=== PATIENT | female | born 1955 | race Caucasian/White ===

== ENCOUNTER 2018-12-21 10:38 | Emergency (ER) | payer OTHER ==
[~2018-12-21] VITALS: Ht 152.4 cm; Wt 76.7 kg
[2018-12-21 10:56] VITALS: Ht 152.4 cm; Wt 76.7 kg
[2018-12-21 13:17] VITALS: BP 123/72
== END 2018-12-21 13:18 | disposition home or self-care (01) ==
LOC: ED 10:38
DX: R07.81 Pleurodynia (principal); W01.0XXA Fall on same level from slipping, tripping and stumbling without subsequent striking against object, initial encounter; Y93.89 Activity, other specified; Y92.89 Other specified places as the place of occurrence of the external cause; Y99.8 Other external cause status